=== PATIENT | female | born 1995 ===

== ENCOUNTER 2017-08-10 10:40 | Emergency (ER) | payer OTHER, SELFPAY ==
[2017-08-10 10:52] VITALS: TEMP 98.2
[2017-08-10 10:53] VITALS: BMI 39.3
[2017-08-10 13:07] LABS: BASO # 0.1 K/uL (0.0-0.2); BASO % 2.1 % (0.0-2.0); EOS # 0.2 K/uL (0.0-0.7); EOS % 3.5 % (0.0-4.0); HEMOGLOBIN 12.8 g/dL (12.0-16.0); LYMPH # 1.9 K/uL (1.0-4.3); LYMPH % 29.3 % (20.0-40.0); MEAN CELL VOLUME 85.6 fl (81.0-99.0); MEAN CORPUSCULAR HEMOGLOBIN 27.7 pg (27.0-31.0); MEAN CORPUSCULAR HGB CONC 32.3 g/dL (33.0-37.0); MEAN PLATELET VOLUME 8.1 fl (7.2-11.7); MONO # 0.5 K/uL (0.0-0.8); MONO % 7.7 % (0.0-10.0); NEUT # 3.8 K/uL (1.8-7.0); NEUT % 57.4 % (50.0-75.0); NRBC % 0.1 % (0.0-0.0); RBC 4.64 Mil/uL (3.80-5.20); RED CELL DISTRIBUTION WIDTH 16.3 % (11.5-14.5); WHITE BLOOD COUNT 6.6 K/uL (4.8-10.8)
[2017-08-10 13:17] LABS: BLOOD UREA NITROGEN 12 mg/dl (7-17); CALCIUM 9.5 mg/dL (8.4-10.2); GFR AFRICAN-AMERICAN > 60; GFR NON-AFRICAN AMERICAN > 60
[2017-08-10] MEDS ORDERED: Iodixanol 320 MG/ML 100 ML BOTTLE IV ONE ×2 (14:43→16:37)
[2017-08-10] MEDS ORDERED: Sodium Chloride 0.9% 50 ML IV ONE ×2 (14:43→16:37)
--- NOTE | 2017-08-10 14:47 | RAD ---
HISTORY: CHEST PAIN COMPARISON: No prior. TECHNIQUE: Chest PA and lateral FINDINGS: LUNGS: No active pulmonary disease. PLEURA: No significant pleural effusion identified. No pneumothorax apparent. CARDIOVASCULAR: Normal. OSSEOUS STRUCTURES: No significant abnormalities. VISUALIZED UPPER ABDOMEN: Normal. OTHER FINDINGS: None. IMPRESSION: No active disease.
--- NOTE | 2017-08-10 15:57 | CT ---
PROCEDURE: CT Chest with contrast (Pulmonary Angiogram) HISTORY: PE COMPARISON: None available. TECHNIQUE: Axial computed tomography images were obtained of the chest in the pulmonary arterial phase of enhancement. Coronal and sagittal reformatted images were created and reviewed. Intravenous contrast dose: 99 mL Visipaque 320. Dose infiltrated into patient's arm. Radiation dose: Total exam DLP = 417.8 mGy-cm. This CT exam was performed using one or more of the following dose reduction techniques: Automated exposure control, adjustment of the mA and/or kV according to patient size, and/or use of iterative reconstruction technique. FINDINGS: PULMONARY ARTERIES: Nondiagnostic due to non opacification of the pulmonary arteries. AORTA: No acute findings. No thoracic aortic aneurysm. LUNGS: Dependent atelectasis. No nodule, mass or pulmonary consolidation. PLEURAL SPACES: Unremarkable. No effusion or pneumothorax. HEART: Unremarkable. No cardiomegaly. No significant pericardial effusion. LYMPH NODES: No lymphadenopathy. BONES, CHEST WALL: Unremarkable. No fracture or destructive lesion OTHER FINDINGS: Unremarkable. IMPRESSION: Nondiagnostic CT pulmonary angiogram due to dose infiltration into the patient's arm. If there is clinical concern for pulmonary embolism, nuclear medicine V/Q scan can be obtained. No focal consolidation or pleural effusion.
[2017-08-10 17:22] VITALS: BP 120/78; PULSE 63; RESP 18; O2SAT 100
--- NOTE | 2017-08-10 17:23 | CT ---
PROCEDURE: CT Chest with contrast (Pulmonary Angiogram) HISTORY: r/o pe COMPARISON: None available. TECHNIQUE: Axial computed tomography images were obtained of the chest in the pulmonary arterial phase of enhancement. Coronal and sagittal reformatted images were created and reviewed. Intravenous contrast dose: 80 mL Visipaque 320 Radiation dose: Total exam DLP = 370.52 mGy-cm. This CT exam was performed using one or more of the following dose reduction techniques: Automated exposure control, adjustment of the mA and/or kV according to patient size, and/or use of iterative reconstruction technique. FINDINGS: PULMONARY ARTERIES: Evaluation technically limited. Unable to evaluate adequately for pulmonary embolism in the segmental/ subsegmental vessels. No large central pulmonary embolus involving either main or lobar pulmonary arteries. AORTA: No acute findings. No thoracic aortic aneurysm. LUNGS: Unremarkable. No nodule, mass or pulmonary consolidation. PLEURAL SPACES: Unremarkable. No effusion or pneuomothorax. HEART: Unremarkable. No cardiomegaly. No significant pericardial effusion. LYMPH NODES: No lymphadenopathy. BONES, CHEST WALL: Unremarkable. No fracture or destructive lesion OTHER FINDINGS: Unremarkable. IMPRESSION: Limited examination. No evidence of large central pulmonary embolism. Cannot exclude segmental/subsegmental pulmonary artery branch pulmonary emboli. No infiltrate/ effusion.
--- NOTE | 2017-08-10 17:42 | ED PDOC ---
HPI: Chest Pain Time Seen by Provider: 08/10/17 12:30 Chief Complaint (Nursing): Chest Pain Chief Complaint (Provider): cp History Per: Patient (22 y/o female with pleuritic left sided chest pain x 2 days. Denies any OCP/smoking/family h/o PE/DVT. No cough/uri/fever. Notes heavy lifting at work sometimes but does not feel pain is worse with movement/ position.) Past Medical History Reviewed: Historical Data, Nursing Documentation, Vital Signs Vital Signs: Last Vital Signs Temp 98.2 F 08/10/17 10:50 Pulse 63 08/10/17 17:22 Resp 18 08/10/17 17:22 BP 120/78 08/10/17 17:22 Pulse Ox 100 08/10/17 17:22 - Medical History PMH: Anxiety, Asthma - Surgical History Surgical History: - Family History Family History: States: Unknown Family Hx - Home Medications Home Medications: Ambulatory Orders Medication Instructions Recorded DiphenhydrAMINE [Benadryl] 25 mg PO Q6H PRN #20 cap 10/21/15 Epinephrine [Epipen 2-Justin] 0.3 mg IJ PRN PRN #0 auto.injct 10/21/15 Famotidine [Pepcid] 20 mg PO BID PRN #10 tab 10/21/15 Prednisone 50 mg PO DAILY #4 tablet 10/21/15 Naproxen 1 tab PO Q12 PRN #14 tab 08/10/17 - Allergies Allergies/Adverse Reactions: Allergies Allergy/AdvReac Type Severity Reaction Status Date / Time shrimp Allergy RASH Verified 08/10/17 11:37 Review of Systems ROS Statement: Except As Marked, All Systems Reviewed And Found Negative Cardiovascular: Positive for: Chest Pain Physical Exam - Reviewed Nursing Documentation Reviewed: Yes Vital Signs Reviewed: Yes - Physical Exam Appears: Positive for: Well, Non-toxic, No Acute Distress Head Exam: Positive for: ATRAUMATIC, NORMAL INSPECTION, NORMOCEPHALIC Skin: Positive for: Normal Color, Warm, DRY Eye Exam: Positive for: EOMI, Normal appearance, PERRL ENT: Positive for: Normal ENT Inspection Neck: Positive for: Normal, Painless ROM Cardiovascular/Chest: Positive for: Regular Rate, Rhythm Respiratory: Positive for: CNT, Normal Breath Sounds Gastrointestinal/Abdominal: Positive for: Normal Exam, Bowel Sounds, Soft Back: Positive for: Normal Inspection Extremity: Positive for: Normal ROM Neurologic/Psych: Positive for: Alert, Oriented - Laboratory Results Result Diagrams: 08/10/17 13:00 08/10/17 13:00 - ECG ECG Rhythm: Positive for: Sinus Rhythm (nsr no ectopy t wave inversion one lead V3) O2 Sat by Pulse Oximetry: 100 - Progress ED Course And Treament: d-dimer elevated. CTA chest ordered Toradol 15 mg iv x 1 dose Disposition - Clinical Impression Clinical Impression: Chest pain - Patient ED Disposition Is Patient to be Admitted: No - Disposition Referrals: [facility] [Outside] Disposition: Routine/Home Disposition Time: 17:43 Condition: FAIR Prescriptions: Naproxen 1 tab PO Q12 PRN #14 tab PRN Reason: Pain, Moderate (4-7) Instructions: Chest Pain (ED) Forms: [facility] ED School/Work Excuse, [facility] (Uzbek) Print Language: CYMRO
--- NOTE | 2017-08-12 10:45 | CARD ---
APPROVED REPORT EKG Measurement Heart [id number] <Conclusion> Normal sinus rhythm Normal ECG
== END 2017-08-10 18:28 | disposition home or self-care (01) ==
LOC: H.ER 10:40
DX: R07.89 Other chest pain (principal); F41.9 Anxiety disorder, unspecified; J45.909 Unspecified asthma, uncomplicated
CPT/HCPCS: 71046; 71275; 80048; 81025; 84484; 85025; 85378; 93005; 96374; 99284; J1885; Q9967

== ENCOUNTER 2017-10-08 15:14 | Emergency (ER) | payer OTHER, SELFPAY ==
[2017-10-08 15:14] VITALS: BMI 39.3
[2017-10-08 16:23] VITALS: BP 124/84
[2017-10-08 16:25] VITALS: PULSE 82; RESP 18; TEMP 98.8; O2SAT 99
--- NOTE | 2017-10-08 18:15 | ED PDOC ---
HPI: Female Pain Time Seen by Provider: 10/08/17 17:04 Chief Complaint (Nursing): Female Genitourinary Chief Complaint (Provider): Female Genitourinary History Per: Patient History/Exam Limitations: no limitations Onset/Duration Of Symptoms: Other (x1 month) Current Symptoms Are (Timing): Still Present Quality Of Discomfort: Cramping Additional Complaint(s): 22 y/o female with past medical history of and irregular menstrual period presents to the ED complaining of vaginal bleeding. She reports that her menstrual period lasted 1 month. She is bleeding heavily and uses about 3-4 pads every day. Also reports mild lower abdominal pain, cramping and dizziness. Denies taking control pills. Denies fever, vomiting, diarrhea, chest pain , syncope or any further medical complaints. Past Medical History Reviewed: Historical Data, Nursing Documentation, Vital Signs Vital Signs: Last Vital Signs Temp 98.8 F 10/08/17 16:23 Pulse 82 10/08/17 16:23 Resp 18 10/08/17 16:23 BP 124/84 10/08/17 16:23 Pulse Ox 99 10/08/17 16:23 - Medical History PMH: Anxiety, Asthma - Surgical History Surgical History: - Family History Family History: States: Unknown Family Hx - Social History Current smoker - smoking cessation education provided: No (Never smoked) Alcohol: None Drugs: Denies - Home Medications Home Medications: Ambulatory Orders Medication Instructions Recorded DiphenhydrAMINE [Benadryl] 25 mg PO Q6H PRN #20 cap 10/21/15 Epinephrine [Epipen 2-Justin] 0.3 mg IJ PRN PRN #0 auto.injct 10/21/15 Famotidine [Pepcid] 20 mg PO BID PRN #10 tab 10/21/15 Prednisone 50 mg PO DAILY #4 tablet 10/21/15 Naproxen 1 tab PO Q12 PRN #14 tab 08/10/17 Docusate [Colace] 100 mg PO BID PRN #20 cap 10/08/17 Ferrous Sulfate [Feosol] 325 mg PO TID #30 tab 10/08/17 - Allergies Allergies/Adverse Reactions: Allergies Allergy/AdvReac Type Severity Reaction Status Date / Time shrimp Allergy RASH Verified 08/10/17 11:37 Review of Systems ROS Statement: Except As Marked, All Systems Reviewed And Found Negative (As per HPI, otherwise negative) Constitutional: Negative for: Fever Cardiovascular: Negative for: Chest Pain Gastrointestinal: Positive for: Abdominal Pain (and cramping). Negative for: Vomiting, Diarrhea Genitourinary Female: Positive for: Vaginal Bleeding Neurological: Positive for: Dizziness. Negative for: Other (syncope) Physical Exam - Reviewed Nursing Documentation Reviewed: Yes Vital Signs Reviewed: Yes - Physical Exam Appears: Positive for: Non-toxic, No Acute Distress Head Exam: Positive for: ATRAUMATIC, NORMAL INSPECTION, NORMOCEPHALIC Skin: Positive for: Normal Color, Warm, Dry Eye Exam: Positive for: EOMI, Normal appearance, PERRL ENT: Positive for: Normal ENT Inspection Neck: Positive for: Normal, Painless ROM, Supple Cardiovascular/Chest: Positive for: Regular Rate, Rhythm. Negative for: Murmur Respiratory: Positive for: Normal Breath Sounds. Negative for: Accessory Muscle Use, Respiratory Distress Gastrointestinal/Abdominal: Positive for: Normal Exam, Soft. Negative for: Tenderness Back: Positive for: Normal Inspection Extremity: Positive for: Normal ROM. Negative for: Deformity Neurologic/Psych: Positive for: Alert, Oriented (x3) - Laboratory Results Result Diagrams: 10/08/17 18:00 10/08/17 18:00 - ECG O2 Sat by Pulse Oximetry: 99 (RA) Pulse Ox Interpretation: Normal Medical Decision Making Medical Decision Making: Time: 17:49 Initial Impression: Vaginal bleeding Differential diagnosis: Uterine fibroid, acute and chronic anemia Plan: Type and Screen BMP Urine CBC w/ differential Pelvis US Reevaluation Scribe Attestation: Documented by Michelle Hickman acting as a scribe for Mohinder Moya MD. MD [place] Attestation: All medical record entries made by the Scribe were at my direction and personally dictated by me. I have reviewed the chart and agree that the record accurately reflects my personal performance of the history, physical exam, medical decision making, and the department course for this patient. I have also personally directed, reviewed, and agree with the discharge instructions and disposition. Disposition - Clinical Impression Clinical Impression: DUB (dysfunctional uterine bleeding) - Patient ED Disposition Is Patient to be Admitted: Transfer of Care - Disposition [facility] Disposition: Transfer of Care Disposition Time: 19:00 Condition: STABLE Prescriptions: Docusate [Colace] 100 mg PO BID PRN #20 cap PRN Reason: Constipation Ferrous Sulfate [Feosol] 325 mg PO TID #30 tab Instructions: Heavy Periods Print Language: GERMAN Patient Signed Over To: Pete Reyes
[2017-10-08 18:25] LABS: BASO % 0.7 % (0.0-2.0); EOS # 0.1 K/uL (0.0-0.7); EOS % 1.5 % (0.0-4.0); HEMOGLOBIN 11.8 g/dL (12.0-16.0); LYMPH # 2.3 K/uL (1.0-4.3); LYMPH % 31.7 % (20.0-40.0); MEAN CELL VOLUME 86.4 fl (81.0-99.0); MEAN CORPUSCULAR HEMOGLOBIN 28.2 pg (27.0-31.0); MEAN CORPUSCULAR HGB CONC 32.6 g/dL (33.0-37.0); MEAN PLATELET VOLUME 8.1 fl (7.2-11.7); MONO # 0.5 K/uL (0.0-0.8); MONO % 7.7 % (0.0-10.0); NEUT # 4.1 K/uL (1.8-7.0); NEUT % 58.4 % (50.0-75.0); NRBC % 0.1 % (0.0-0.0); RBC 4.2 Mil/uL (3.80-5.20); RED CELL DISTRIBUTION WIDTH 15.7 % (11.5-14.5); WHITE BLOOD COUNT 7.1 K/uL (4.8-10.8)
[2017-10-08 18:32] LABS: BLOOD UREA NITROGEN 14 mg/dl (7-17); CALCIUM 9.4 mg/dL (8.4-10.2); GFR AFRICAN-AMERICAN > 60; GFR NON-AFRICAN AMERICAN > 60
--- NOTE | 2017-10-08 22:12 | ED PDOC ---
- Laboratory Results Result Diagrams: 10/08/17 18:00 10/08/17 18:00 - ECG O2 Sat by Pulse Oximetry: 99 (RA) Medical Decision Making Medical Decision Making: Time: 19:00 Patient is signed over to me by Dr. Moya pending ultrasound and reevaluation. Scribe Attestation: Documented by Michelle Hickman acting as a scribe for Pete Reyes MD. Scribe Attestation: All medical record entries made by the Scribe were at my direction and personally dictated by me. I have reviewed the chart and agree that the record accurately reflects my personal performance of the history, physical exam, medical decision making, and the department course for this patient. I have also personally directed, reviewed, and agree with the discharge instructions and disposition. Disposition - Clinical Impression Clinical Impression: DUB (dysfunctional uterine bleeding) - POA Present On Arrival: None - Disposition [facility] [[facility]] Disposition: Routine/Home Disposition Time: 22:00 Condition: STABLE Prescriptions: Docusate [Colace] 100 mg PO BID PRN #20 cap PRN Reason: Constipation Ferrous Sulfate [Feosol] 325 mg PO TID #30 tab Instructions: Heavy Periods Forms: [facility] (Chinese) Print Language: SAMOAN
--- NOTE | 2017-10-09 11:01 | US ---
HISTORY: Vaginal bleeding, lower abdominal pain. LMP 08/31/2017. Cycles are irregular. COMPARISON: 08/21/2016 pelvic ultrasound TECHNIQUE: Transabdominal, transvaginal. Real -time technique with 2D, duplex and color Doppler. FINDINGS: UTERUS: Measures 3.7 x 5.2 x 8 cm. Normal in size and appearance. No fibroid or other mass lesion seen. ENDOMETRIUM: Measures 14.2 mm in diameter. Endometrial hypertrophy without focal abnormality. CERVIX: No cervical abnormality identified. RIGHT OVARY: Measures 2.2 x 2.2 x 3.4 cm. No solid mass. Normal flow. LEFT OVARY: Measures 2.2 x 3 x 3.9 cm. No solid mass. Normal flow. FREE FLUID: No significant free fluid noted. OTHER FINDINGS: None. IMPRESSION: Thickened endometrium without focal abnormality. No evidence of yolk sac, gestational sac or pole. No acute findings or significant interval changes. Concordant results (preliminary interpretation) provided by [facility]. Procedure Completed: 20:14 Preliminary ([facility]) Report: Dictated and Authenticated: 21:44 Final Interpretation: 11:00 October 09, 2017.
== END 2017-10-08 22:55 | disposition home or self-care (01) ==
LOC: H.ER 15:14
DX: N93.8 Other specified abnormal uterine and vaginal bleeding (principal); F41.9 Anxiety disorder, unspecified; J45.909 Unspecified asthma, uncomplicated
CPT/HCPCS: 76830; 76856; 80048; 81025; 85025; 86850; 86900; 96372; 99282; J1885

== ENCOUNTER 2018-02-28 12:09 | Emergency (ER) | payer OTHER ==
[2018-02-28 12:09] VITALS: BMI 39.3
[2018-02-28 12:18] VITALS: TEMP 97.7; O2SAT 98
[2018-02-28 13:39] LABS: SQUAMOUS EPITHIAL 1 /hpf (0-5); URINE BILIRUBIN NEGATIVE (NEGATIVE); URINE BLOOD MODERATE (NEGATIVE); URINE CLARITY SLIGHTY-CLOUDY (Clear); URINE COLOR YELLOW (YELLOW); URINE GLUCOSE (UA) NEG (Normal); URINE LEUKOCYTE ESTERASE NEG Leu/uL (Negative); URINE PROTEIN NEGATIVE (NEGATIVE); URINE UROBILINOGEN 0.2-1.0 mg/dL (0.2-1.0)
--- NOTE | 2018-02-28 13:41 | ED PDOC ---
HPI: Abdomen Time Seen by Provider: 02/28/18 12:19 Chief Complaint (Nursing): Female Genitourinary Chief Complaint (Provider): Abdominal Pain and Vaginal Bleeding History Per: Patient History/Exam Limitations: no limitations Onset/Duration Of Symptoms: Days Current Symptoms Are (Timing): Still Present Location Of Pain/Discomfort: Suprapubic Quality Of Discomfort: Cramping Associated Symptoms: denies: Fever, Vomiting, Diarrhea Additional Complaint(s): 22 year old female presents to the ED for an evaluation of lower abdominal cramping and vaginal bleeding onset for 4 weeks. She has associated symptoms of weakness and light headache. Reports the vaginal bleeding is irregular because she has her period every 28 -30 days. Patient took Tylenol without any relief. She denies fever, vomiting or diarrhea. Of note: Patient is G1 and P1. PMD: No family Provider Abnormal Vaginal Bleeding: Yes : 1 Para: 1 Past Medical History Reviewed: Historical Data, Nursing Documentation, Vital Signs Vital Signs: Last Vital Signs Temp 97.7 F 02/28/18 12:15 Pulse 84 02/28/18 12:15 Resp 16 02/28/18 12:15 BP 116/74 02/28/18 12:15 Pulse Ox 98 02/28/18 15:23 - Medical History PMH: Anxiety, Asthma - Surgical History Surgical History: (1x) - Family History Family History: States: Unknown Family Hx - Social History Current smoker - smoking cessation education provided: No Alcohol: None Drugs: Denies - Home Medications Home Medications: Ambulatory Orders Medication Instructions Recorded DiphenhydrAMINE [Benadryl] 25 mg PO Q6H PRN #20 cap 10/21/15 Epinephrine [Epipen 2-Justin] 0.3 mg IJ PRN PRN #0 auto.injct 10/21/15 Famotidine [Pepcid] 20 mg PO BID PRN #10 tab 10/21/15 Prednisone 50 mg PO DAILY #4 tablet 10/21/15 Naproxen 1 tab PO Q12 PRN #14 tab 08/10/17 Docusate [Colace] 100 mg PO BID PRN #20 cap 10/08/17 Ferrous Sulfate [Feosol] 325 mg PO TID #30 tab 10/08/17 Ibuprofen [Motrin] 600 mg PO Q6 #20 tab 02/28/18 Iron,Carbonyl [Iron Chews] 15 mg PO DAILY #30 tab.chew 02/28/18 - Allergies Allergies/Adverse Reactions: Allergies Allergy/AdvReac Type Severity Reaction Status Date / Time shrimp Allergy RASH Verified 02/28/18 12:15 Review of Systems ROS Statement: Except As Marked, All Systems Reviewed And Found Negative Constitutional: Negative for: Fever Gastrointestinal: Positive for: Abdominal Pain Genitourinary Female: Positive for: Vaginal Bleeding. Negative for: Dysuria, Frequency, Incontinence, Vaginal Discharge Neurological: Positive for: Weakness, Headache Psych: Negative for: Suicidal ideation (homicidal ideation ) Physical Exam - Reviewed Nursing Documentation Reviewed: Yes Vital Signs Reviewed: Yes - Physical Exam Appears: Positive for: Well, Non-toxic, No Acute Distress Head Exam: Positive for: ATRAUMATIC, NORMAL INSPECTION, NORMOCEPHALIC Skin: Positive for: Normal Color, Warm, Dry Eye Exam: Positive for: EOMI, Normal appearance, PERRL Neck: Positive for: Normal, Painless ROM, Supple. Negative for: Decreased ROM Cardiovascular/Chest: Positive for: Regular Rate, Rhythm. Negative for: Murmur Respiratory: Positive for: Normal Breath Sounds. Negative for: Decreased Breath Sounds, Wheezing, Respiratory Distress Gastrointestinal/Abdominal: Positive for: Tenderness (suprapubic). Negative for : Rebound Back: Positive for: Normal Inspection. Negative for: L CVA Tenderness, R CVA Tenderness Extremity: Positive for: Normal ROM. Negative for: Tenderness, Pedal Edema, Deformity Neurologic/Psych: Positive for: Alert, Oriented (x3). Negative for: Motor/ Sensory Deficits - Laboratory Results Result Diagrams: 02/28/18 13:51 02/28/18 13:51 - ECG O2 Sat by Pulse Oximetry: 98 (RA) Pulse Ox Interpretation: Normal Medical Decision Making Medical Decision Making: Time: 1306 Initial Impression: dysfunctional uterine bleeding Initial Plan: --ABO/RH Type --Type and Screen --BETA HCG, Quantitative --CMP --ED Urine --ED Urine Dipstick --CBC w/ Differential --Toradol 30mg --Urine Culture --IV Insertion --Urinalysis --Pelvis Ultrasound --Transvaginal US --Reevaluation Time: 1356 Transvaginal pelvic ultrasound FINDINGS: UTERUS: Measures 7.6 x 5.2 x 3.7 cm. Anteverted, normal in size and appearance. No fibroid or other mass lesion seen. ENDOMETRIUM: Measures 12 mm in diameter. Unremarkable. CERVIX: There is a small nabothian cyst, no other cervical abnormality identified. RIGHT OVARY: Measures 4.1 x 4.2 x 2.6 cm. No solid mass. Normal flow. LEFT OVARY: Measures 3.8 x 3.4 x 2.2 cm. No solid mass. Normal flow. FREE FLUID: No significant free fluid noted. OTHER FINDINGS: None. IMPRESSION: Unremarkable pelvic ultrasound. Labs resulted and reviewed with Pt who demonstrated full understanding. Pt instructed on importance of follow up with [facility] Pt started on Iron tablets and advised to return to ED if at anytime symptoms worsens Scribe Attestation: Documented by Shelton Todd, acting as a scribe for Alejandra Ozuna PA-C. Provider Scribe Attestation: All medical record entries made by the Scribe were at my direction and personally dictated by me. I have reviewed the chart and agree that the record accurately reflects my personal performance of the history, physical exam, medical decision making, and the department course for this patient. I have also personally directed, reviewed, and agree with the discharge instructions and disposition. Disposition - Clinical Impression Clinical Impression: Dysfunctional uterine bleeding - Patient ED Disposition Is Patient to be Admitted: No - Disposition [facility] Disposition: Routine/Home Disposition Time: 17:21 Condition: STABLE Prescriptions: Ibuprofen [Motrin] 600 mg PO Q6 #20 tab Iron,Carbonyl [Iron Chews] 15 mg PO DAILY #30 tab.chew Instructions: Heavy Periods (DC) Forms: [facility] (Portuguese)
[2018-02-28 13:56] LABS: BASO # 0.1 K/uL (0.0-0.2); BASO % 1.1 % (0.0-2.0); EOS # 0.2 K/uL (0.0-0.7); EOS % 3.4 % (0.0-4.0); HEMOGLOBIN 10.3 g/dL (12.0-16.0); LYMPH # 1.9 K/uL (1.0-4.3); LYMPH % 28.4 % (20.0-40.0); MEAN CELL VOLUME 76.5 fl (81.0-99.0); MEAN CORPUSCULAR HEMOGLOBIN 24.2 pg (27.0-31.0); MEAN CORPUSCULAR HGB CONC 31.6 g/dL (33.0-37.0); MEAN PLATELET VOLUME 7.6 fl (7.2-11.7); MONO # 0.7 K/uL (0.0-0.8); NEUT # 3.9 K/uL (1.8-7.0); NEUT % 57.1 % (50.0-75.0); RBC 4.26 Mil/uL (3.80-5.20); RED CELL DISTRIBUTION WIDTH 21.3 % (11.5-14.5); WHITE BLOOD COUNT 6.8 K/uL (4.8-10.8)
--- NOTE | 2018-02-28 13:58 | US ---
Date of service: 02/28/2018 HISTORY: Severe pelvic cramping, bleeding x 4 w COMPARISON: None available. TECHNIQUE: Transvaginal pelvic ultrasound was performed. FINDINGS: UTERUS: Measures 7.6 x 5.2 x 3.7 cm. Anteverted, normal in size and appearance. No fibroid or other mass lesion seen. ENDOMETRIUM: Measures 12 mm in diameter. Unremarkable. CERVIX: There is a small nabothian cyst, no other cervical abnormality identified. RIGHT OVARY: Measures 4.1 x 4.2 x 2.6 cm. No solid mass. Normal flow. LEFT OVARY: Measures 3.8 x 3.4 x 2.2 cm. No solid mass. Normal flow. FREE FLUID: No significant free fluid noted. OTHER FINDINGS: None. IMPRESSION: Unremarkable pelvic ultrasound.
[2018-02-28 14:10] LABS: ALB/GLOB RATIO 1.1 (1.0-2.1); ALBUMIN 3.9 g/dL (3.5-5.0); ALT/SGPT 22 U/L (9-52); AST/SGOT 33 U/L (14-36); BLOOD UREA NITROGEN 10 mg/dl (7-17); CALCIUM 9.1 mg/dL (8.4-10.2); GFR NON-AFRICAN AMERICAN > 60
[2018-02-28 17:37] VITALS: BP 120/70; PULSE 79; RESP 18
== END 2018-02-28 17:36 | disposition home or self-care (01) ==
LOC: H.ER 12:09
DX: N93.8 Other specified abnormal uterine and vaginal bleeding (principal); F41.9 Anxiety disorder, unspecified
CPT/HCPCS: 76830; 80053; 81003; 81025; 84702; 85025; 86850; 86900; 87086; 96374; 99284; J1885

== ENCOUNTER 2018-03-19 10:49 | Emergency (ER) | payer OTHER ==
[2018-03-19 10:50] VITALS: BMI 39.3
[2018-03-19 11:17] VITALS: O2SAT 100
--- NOTE | 2018-03-19 12:39 | ED PDOC ---
HPI: Female Pain Chief Complaint (Provider): Vaginal bleeding History Per: Patient Additional Complaint(s): 22 year old female presents to the ED for an evaluation of continued lower abdominal cramping and vaginal bleeding onset for 6 weeks now. She has associated symptoms of weakness and light headache. Reports the vaginal bleeding is irregular because she has her period every 28 -30 days. Patient took Tylenol without any relief. She denies fever, vomiting or diarrhea. Of note: Patient is G1 and P1. Past Medical History Reviewed: Nursing Documentation, Vital Signs Vital Signs: Last Vital Signs Temp 98.5 F 03/19/18 11:16 Pulse 93 H 03/19/18 11:16 Resp 20 03/19/18 11:16 BP 130/81 03/19/18 11:16 Pulse Ox 100 03/19/18 11:16 - Medical History PMH: Anxiety, Asthma - Surgical History Surgical History: (1x) - Family History Family History: States: Unknown Family Hx - Living Arrangements Living Arrangements: With Family - Social History Current smoker - smoking cessation education provided: No Alcohol: Social Drugs: Denies - Home Medications Home Medications: Ambulatory Orders Medication Instructions Recorded DiphenhydrAMINE [Benadryl] 25 mg PO Q6H PRN #20 cap 10/21/15 Epinephrine [Epipen 2-Justin] 0.3 mg IJ PRN PRN #0 auto.injct 10/21/15 Famotidine [Pepcid] 20 mg PO BID PRN #10 tab 10/21/15 Prednisone 50 mg PO DAILY #4 tablet 10/21/15 Naproxen 1 tab PO Q12 PRN #14 tab 08/10/17 Docusate [Colace] 100 mg PO BID PRN #20 cap 10/08/17 Ferrous Sulfate [Feosol] 325 mg PO TID #30 tab 10/08/17 Ibuprofen [Motrin] 600 mg PO Q6 #20 tab 02/28/18 Iron,Carbonyl [Iron Chews] 15 mg PO DAILY #30 tab.chew 02/28/18 Norgestimate-Ethinyl Estradiol 1 each PO DAILY #1 tablet 03/19/18 [Ortho Tri-Cyclen 28 Tablet] - Allergies Allergies/Adverse Reactions: Allergies Allergy/AdvReac Type Severity Reaction Status Date / Time shrimp Allergy RASH Verified 03/19/18 13:07 Review of Systems ROS Statement: Except As Marked, All Systems Reviewed And Found Negative Genitourinary Female: Positive for: Vaginal Bleeding Physical Exam - Reviewed Nursing Documentation Reviewed: Yes Vital Signs Reviewed: Yes - Physical Exam Appears: Positive for: Well, Non-toxic, No Acute Distress Head Exam: Positive for: ATRAUMATIC, NORMAL INSPECTION, NORMOCEPHALIC Skin: Positive for: Normal Color, Warm, DRY Eye Exam: Positive for: EOMI, Normal appearance, PERRL ENT: Positive for: Normal ENT Inspection Neck: Positive for: Normal, Painless ROM Cardiovascular/Chest: Positive for: Regular Rate, Rhythm Respiratory: Positive for: CNT, Normal Breath Sounds Gastrointestinal/Abdominal: Positive for: Normal Exam, Soft Pelvic Exam: Positive for: External Exam Normal, Active Bleeding (mild) Back: Positive for: Normal Inspection Extremity: Positive for: Normal ROM Neurologic/Psych: Positive for: Alert, Oriented - Laboratory Results Result Diagrams: 03/19/18 13:43 03/19/18 13:43 - ECG O2 Sat by Pulse Oximetry: 100 Medical Decision Making Medical Decision Making: Labs resulted and reviewed with Pt who demonstrated full understanding Case discussed with OB on-call, Dr. Saldana who advised pt start on ortho tri cyclin 4 pills for 4 days 3 pills for 3 days 2 pills for 2 days Pt scheduled to follow up with clinic on Apr 03 Disposition - Clinical Impression Clinical Impression: Menorrhagia - Patient ED Disposition Is Patient to be Admitted: No - Disposition Disposition: Routine/Home Disposition Time: 15:39 Condition: STABLE Prescriptions: Norgestimate-Ethinyl Estradiol [Ortho Tri-Cyclen 28 Tablet] 1 each PO DAILY #1 tablet Instructions: Heavy Periods (DC) Forms: [facility] (Arabic) Print Language: CZECH
--- NOTE | 2018-03-19 13:53 | US ---
Date of service: 03/19/2018 HISTORY: vaginal bleeding COMPARISON: Pelvic ultrasound performed 02/28/18 and 10/08/17 TECHNIQUE: Transvaginal pelvic ultrasound FINDINGS: UTERUS: Measures 7.6 x 3.9 x 4.0 cm. Anteverted. ENDOMETRIUM: Measures approximately 1.2 cm and appears heterogeneous. Echogenic 6 mm focus, uncertain significance/etiology. CERVIX: Heterogeneous appearance of the cervix. Probable small fluid within the cervix. RIGHT OVARY: Measures 3.6 x 2.5 x 3.3 cm. Blood flow is demonstrated. LEFT OVARY: Measures 4.0 x 2.2 x 3.4 cm. Blood flow is demonstrated. FREE FLUID: No significant free fluid noted. OTHER FINDINGS: None. IMPRESSION: Heterogeneous appearance of the endometrial cavity. 6 mm echogenic focus within the endometrium, uncertain significance/etiology. Correlate clinically and recommend 6 week ultrasound follow-up. Heterogeneous appearance of the cervix. Probable fluid within the cervix. Recommend correlation with pelvic examination and Pap smear.
[2018-03-19 13:54] LABS: BASO % 0.5 % (0.0-2.0); EOS # 0.2 K/uL (0.0-0.7); EOS % 2.6 % (0.0-4.0); HEMOGLOBIN 10.2 g/dL (12.0-16.0); LYMPH # 1.6 K/uL (1.0-4.3); LYMPH % 18.6 % (20.0-40.0); MEAN CELL VOLUME 77.2 fl (81.0-99.0); MEAN CORPUSCULAR HEMOGLOBIN 24.9 pg (27.0-31.0); MEAN CORPUSCULAR HGB CONC 32.3 g/dL (33.0-37.0); MEAN PLATELET VOLUME 7.9 fl (7.2-11.7); MONO # 0.8 K/uL (0.0-0.8); MONO % 8.9 % (0.0-10.0); NEUT # 5.9 K/uL (1.8-7.0); NEUT % 69.4 % (50.0-75.0); RBC 4.1 Mil/uL (3.80-5.20); RED CELL DISTRIBUTION WIDTH 20.8 % (11.5-14.5); WHITE BLOOD COUNT 8.6 K/uL (4.8-10.8)
[2018-03-19 14:01] LABS: SQUAMOUS EPITHIAL 1 /hpf (0-5); URINE BILIRUBIN NEGATIVE (NEGATIVE); URINE CLARITY SLIGHTY-CLOUDY (Clear); URINE COLOR YELLOW (YELLOW); URINE GLUCOSE (UA) NEG (Normal); URINE LEUKOCYTE ESTERASE NEG Leu/uL (Negative); URINE PROTEIN NEGATIVE (NEGATIVE); URINE UROBILINOGEN 0.2-1.0 mg/dL (0.2-1.0)
[2018-03-19 14:05] LABS: URINE BLOOD LARGE (NEGATIVE)
[2018-03-19 14:06] LABS: ALB/GLOB RATIO 1.1 (1.0-2.1); ALBUMIN 4.1 g/dL (3.5-5.0); ALT/SGPT 29 U/L (9-52); AST/SGOT 44 U/L (14-36); BLOOD UREA NITROGEN 11 mg/dl (7-17); CALCIUM 9.2 mg/dL (8.4-10.2); GFR NON-AFRICAN AMERICAN > 60
[2018-03-19 17:18] VITALS: BP 122/73; PULSE 85; RESP 18; TEMP 98.4
== END 2018-03-19 16:07 | disposition home or self-care (01) ==
LOC: H.ER 10:49
DX: N92.0 Excessive and frequent menstruation with regular cycle (principal)